=== PATIENT | male | born 1990 | race Caucasian/White ===

== ENCOUNTER 2021-03-22 11:58 | Emergency (ER) | payer OTHER ==
[~2021-03-22] VITALS: Ht 182.9 cm; Wt 97.7 kg
[2021-03-22] MEDS ORDERED: ZOLO50TA PO (12:11)
[2021-03-22] MEDS ORDERED: CONC36TA4 PO (12:11)
--- NOTE | 2021-03-22 13:21 | REP ---
INDICATION: SWELLING RIGHT SIDE COMPARISON: None. TECHNIQUE: Clayton scale and color Doppler evaluation using linear and curved array transducer with color Doppler evaluation. FINDINGS: The testicles and epididymi are relatively normal in contour, size, echogenicity, vascularity and overall appearance. 5 mm incidental simple right epididymal head cyst noted. There is no evidence for intratesticular mass lesion, infectious/inflammatory process, or torsion. No obvious hydroceles or varicoceles are identified. Right testicle measures 5.1 x 2.3 x 3.6 cm. Left testicle measures 4.6 x 2.3 x 3.1 cm. IMPRESSION: Essentially normal scrotal ultrasound. No evidence for torsion or infectious/inflammatory process. <Electronically signed by Abelardo Duncan > 03/22/21 1190
[2021-03-22] MEDS ORDERED: KETOROLAC TROMETHAMINE 10 MG TAB PO ONE (13:35)
[2021-03-22 13:43] VITALS: BP 136/78
== END 2021-03-22 13:40 | disposition home or self-care (01) ==
LOC: M ED 11:58
DX: N50.819 Testicular pain, unspecified (principal); Z98.52 Vasectomy status; F32.9 Major depressive disorder, single episode, unspecified; F17.200 Nicotine dependence, unspecified, uncomplicated

== ENCOUNTER → 2021-05-11 | Outpatient (REF) | payer OTHER ==
[~2021-05-11] MED LIST: CONC36TA4 PO; ZOLO50TA PO
[2021-05-11 17:31] LABS: APPEARANCE, URINE CLEAR (CLEAR); BACTERIA, URINE AUTO NEGATIVE (NEGATIVE); BILIRUBIN, URINE AUTO NEGATIVE (NEGATIVE); BLOOD, URINE BLOOD NEGATIVE (NEGATIVE); COLOR, URINE YELLOW (YELLOW); GLUCOSE, URINE (UA) AUTO NEGATIVE (NEGATIVE); KETONE, URINE AUTO NEGATIVE (NEGATIVE); LEUKOCYTE ESTERASE, URINE AUTO NEGATIVE (NEGATIVE); MUCUS, URINE SMALL (NEGATIVE); NITRITE, URINE AUTO NEGATIVE (NEGATIVE); PROTEIN, URINE AUTO NEGATIVE (NEGATIVE); RBC, URINE AUTO 0 /HPF (0-3); SPECIFIC GRAVITY URINE AUTO 1.023 (1.002-1.035); SQUAMOUS EPITHELIAL CELL UR AU 0 /HPF (0-6); UROBILINOGEN, URINE AUTO 0.2 mg/dL (0.0-2.0); WBC, URINE AUTO 0 /HPF (0-3)
== END ==
LOC: M SMT 17:04
PROVIDERS: ATTEND Nurse Practitioner Women's Health
DX: N50.819 Testicular pain, unspecified (principal)
CPT/HCPCS: 81001; 87086; G0463

== ENCOUNTER → 2023-01-21 | Outpatient (REF) | payer OTHER ==
[2023-01-21 11:53] LABS: SEMEN APPEARANCE OPAQUE (OPAQUE); SEMEN VISCOSITY LIQUID (LIQUID); SEMEN VOLUME 2.3 ml (2.0-5.0); SEMEN pH 8.5 (7.0-8.0); WBC CONCENTRATION <=1 M/ml (<=1 M/ml)
== END ==
LOC: M SMT 11:37
PROVIDERS: ATTEND Physician Assistant
DX: Z31.0 Encounter for reversal of previous sterilization (principal)